=== PATIENT | female | born 1995 | race Caucasian/White ===

== ENCOUNTER → 2019-07-18 09:35 | Outpatient (CLI) | payer OTHER, SELFPAY ==
--- NOTE | 2019-07-18 | DI.MRI.S_ITS ---
PROCEDURE: MR CERVICAL SPINE WO CON INDICATIONS: Cervicalgia TECHNIQUE: Noncontrast sagittal T1 spin echo and T2 fast spin echo, sagittal STIR, foraminal oblique sagittal T2 fast spin echo, and axial gradient echo or T2 fast spin echo through the cervical spine. COMPARISON: None. FINDINGS: Image quality: Excellent. Alignment and Curvature: There is loss of normal cervical lordosis. Mild kyphosis at C2-C3. Bone Marrow: Marrow demonstrates normal overall signal. Spinal Cord: Visualized spinal cord has normal size and signal. No cerebellar tonsillar herniation. Paraspinous Soft Tissues: No paravertebral masses. Prevertebral soft tissues are normal in thickness. C2-C3: Normal appearance. C3-C4: Mild disc desiccation. No significant canal, nor foraminal stenosis. C4-C5: Mild disc desiccation. No significant canal, nor foraminal stenosis. C5-C6: Mild disc desiccation. No significant canal, nor foraminal stenosis. C6-C7: Normal appearance. C7-T1: Normal appearance. IMPRESSION: 1. Mild mid/upper cervical degenerative disc disease without significant canal, nor foraminal stenosis. No neural impingement. Dictated by: Adrian Kirkland M.D. on 07/20/2019 at 11:34 Approved by: Adrian Kirkland M.D. on 07/20/2019 at 11:36
== END ==
PROVIDERS: PCP Family Medicine; Visit Provider Family Medicine
DX: M50.31 Other cervical disc degeneration, high cervical region (principal)
CPT/HCPCS: 72141